=== PATIENT | female | born 1985 | race Caucasian/White ===

== ENCOUNTER 2018-05-12 21:42 | Emergency (ER) | payer OTHER ==
[~2018-05-12] VITALS: Ht 167.6 cm; Wt 111.1 kg
[~2018-05-12 21:42] MED LIST: ALBUTEROL2.5 MG/3 M IH; AMOX1TAB12 PO; ASMANEX0.24 G1 NASAL; ATROVENT 00.5 MG/2.5 IH; ATROVENT21 MCG; BENZONATATE200 M1 PO; BUCALSEP SPRAY30 ML MM; CODE1TAB37 PO; KETO10TA2 PO; MEDROLPACK PO; Mylicon 125MG PO; PRENATAL ONE T1 EACH PO; PROVENTIL0.5 ML/2.5; PULMICORT1 MG/2 ML; Pulmicort 0.5 MG/2 ML AMPUL IH; RHINOCORT AQUA NS; SENOKOT TAB1 TAB PO; SINGULAIR 10MG10 MG PO; SYNTHROID200 MCG; SYNTHROID300 MCG PO; TUSSI-PRES B LIQ5 ML PO; ZOFRAN4 MG; ZOFRAN8 MG PO
[2018-05-12] MEDS ORDERED: SYNTHROID200 MCG PO (22:03)
[2018-05-13] MEDS ORDERED: PROVENTIL HFA6.7 GM IH (02:04)
[2018-05-13] MEDS ORDERED: ALBUTEROL2.5 MG/3 M IH (02:04)
[2018-05-13] MEDS ORDERED: TUSSIONEX PENN115 ML PO (02:04)
== END 2018-05-13 02:17 ==
LOC: ER 21:42
DX: J98.01 Acute bronchospasm (principal)

== ENCOUNTER 2020-03-29 11:05 | Outpatient (CLI) | payer OTHER ==
[~2020-03-29 11:05] MED LIST changes: +PROVENTIL HFA6.7 GM IH; +SYNTHROID200 MCG PO; +TUSSIONEX PENN115 ML PO
== END 2020-03-29 11:07 | disposition home or self-care (01) ==
LOC: TOM 11:05
DX: N20.1 Calculus of ureter (principal)

== ENCOUNTER 2020-06-03 11:00 | Inpatient (IN) | payer OTHER ==
[~2020-06-03] VITALS: Ht 167.6 cm; Wt 116.1 kg
[2020-06-03] MEDS ORDERED: TUDORZA PRESS400 MCG (12:34)
[2020-06-03] MEDS ORDERED: SYNTHROID (12:34)
[2020-06-10] MEDS ORDERED: CLOTRIMAZOLE-BE15 G1 (08:08)
[2020-06-10] MEDS ORDERED: SYNTHROID200 MCG (08:08)
[2020-06-10] MEDS ORDERED: BUTALB-ACETAMI1 EACH (08:08)
[2020-06-13] MEDS ORDERED: NEURONTIN600 MG PO (06:05)
[2020-06-13] MEDS ORDERED: LEVOTHYROXINE125 MCG PO (06:05)
[2020-06-13] MEDS ORDERED: POLY119PG PO (06:05)
[2020-06-13] MEDS ORDERED: SIMETHICONE125 M1 PO (06:05)
[2020-06-13] MEDS ORDERED: KETO10TA2 PO (06:05)
== END 2020-06-13 08:18 | disposition home or self-care (01) | DRG 743 ==
LOC: O/R 06-10 05:48 → OB/GYN 06-10 05:48 → SURH 06-10 07:00 → OB/GYN 06-10 10:06 → SURH 06-10 11:00 → OB/GYN 06-13 08:18
PROVIDERS: ADMIT Obstetrics & Gynecology; ATTEND Obstetrics & Gynecology
PROC: 0UT90ZZ Resection of Uterus, Open Approach (ICD-10-PCS; principal; 2020-06-10 07:00)
DX: D25.1 Intramural leiomyoma of uterus (principal); D25.2 Subserosal leiomyoma of uterus; N93.9 Abnormal uterine and vaginal bleeding, unspecified

== ENCOUNTER 2021-11-16 13:48 | Emergency (ER) | payer OTHER ==
[~2021-11-16] VITALS: Ht 167.6 cm; Wt 113.4 kg
[~2021-11-16 13:48] MED LIST changes: +BUTALB-ACETAMI1 EACH; +CLOTRIMAZOLE-BE15 G1; +LEVOTHYROXINE125 MCG PO; +NEURONTIN600 MG PO; +POLY119PG PO; +SIMETHICONE125 M1 PO; +SYNTHROID; +TUDORZA PRESS400 MCG
[2021-11-16] MEDS ORDERED: SYNTHROID50 MCG PO (14:32)
== END 2021-11-16 22:31 | disposition home or self-care (01) ==
LOC: ER 13:48
DX: R10.13 Epigastric pain (principal); R11.0 Nausea; Z88.5 Allergy status to narcotic agent; Z88.6 Allergy status to analgesic agent